=== PATIENT | female | born 1975 | race Caucasian/White ===

== ENCOUNTER → 2017-01-12 | Outpatient (CLI) | payer BC, MEDICAID ==
[~2017-01-12] MED LIST: AMOX250S5 PO; FLUC200T PO; HYDR-757 PO; HYDR1TAB8 OP; LEVO500T2 PO
--- NOTE | 2017-01-12 13:43 | Diagnostic Imaging Report ---
Bilateral screening mammogram The current study was also evaluated with a Computer Aided Detection (CAD) system. INDICATION: Screening. No current complaints stated on the questionnaire. COMPARISON: 01/30/16. FINDINGS: The breasts are composed of heterogeneously dense parenchyma which may decrease mammographic sensitivity. Benign-appearing calcifications are seen. Allowing for technique and positional differences, no suspicious change is seen. IMPRESSION: Dense breasts with no definite change. ACR BI-RADS Category 2: Benign findings. Result letter will be mailed to the patient. Note: At least 10% of breast cancer is not imaged by mammography. Dictated by: Dictated on workstation # [id number]
== END ==
LOC: RAD 09:56
PROVIDERS: ATTEND Nurse Practitioner Adult Health
DX: Z12.31 Encounter for screening mammogram for malignant neoplasm of breast (principal)
CPT/HCPCS: 77067

== ENCOUNTER → 2018-09-12 | Outpatient (CLI) | payer BC ==
--- NOTE | 2018-09-12 12:42 | Diagnostic Imaging Report ---
INDICATION: Routine screening. COMPARISON: 01/12/2017 and 01/30/2016. TECHNIQUE: 2D and 3D bilateral screening mammography was performed with CAD. FINDINGS: Both breasts show marked parenchymal heterogeneity and increased density, limiting the sensitivity of mammography. Circumscribed masses in the inner aspect of the right breast have increased in size when compared with the prior mammogram and most likely represent enlarging cysts. There appear to be two adjacent to one another. The left breast is unremarkable. No malignant appearing microcalcifications are seen. The axillae are unremarkable. IMPRESSION: Enlarging densities in the medial right breast at posterior depth at approximately the 3 o'clock location. Further evaluation with ultrasound is recommended for further catheterization. ACR BI-RADS Category 0: Incomplete. (Needs additional imaging evaluation). Result letter will be mailed to the patient. Note: At least 10% of breast cancer is not imaged by mammography. Dictated by: Dictated on workstation # [id number]
== END ==
LOC: RAD 08:06
PROVIDERS: ATTEND Nurse Practitioner Family
DX: Z12.31 Encounter for screening mammogram for malignant neoplasm of breast (principal); R92.8 Other abnormal and inconclusive findings on diagnostic imaging of breast
CPT/HCPCS: 77067

== ENCOUNTER → 2018-09-28 | Outpatient (CLI) | payer BC ==
--- NOTE | 2018-09-28 22:13 | Diagnostic Imaging Report ---
INDICATION: Abnormal mammogram. TECHNIQUE: Multiple real-time grayscale images were obtained over the right breast in various projections. FINDINGS: At the 1 o'clock position in the right breast, 7 cm from the nipple, there is a anechoic cyst, measuring 3.6 x 1.2 x 3.o cm. There are a few smaller cysts in the 12-3 o'clock position. IMPRESSION: The well-circumscribed mass on mammography corresponds to a simple cyst. ACR BI-RADS Category 2: Benign findings. Result letter will be mailed to the patient. Note: At least 10% of breast cancer is not imaged by mammography. Dictated by: Dictated on workstation # [id number]
== END ==
LOC: RAD 08:02
PROVIDERS: ATTEND Nurse Practitioner Family
DX: R92.8 Other abnormal and inconclusive findings on diagnostic imaging of breast (principal)

== ENCOUNTER 2019-03-22 07:52 | Emergency (ER) | payer BC ==
[~2019-03-22] VITALS: Ht 162.6 cm; Wt 72.6 kg
[2019-03-22] MEDS ORDERED: ASPIRIN 81 MG CHEW (CHILDREN'S ASA) PO STA (08:01)
[2019-03-22 08:12] LABS: BASOPHILS # (AUTO) 0.1 10^3/uL (0.0-0.1); BASOPHILS % (AUTO) 1 % (0-10); EOSINOPHILS # (AUTO) 0.4 10^3/uL (0.0-0.3); EOSINOPHILS % (AUTO) 3 % (0-10); HEMATOCRIT 41 % (35-52); HEMOGLOBIN 14.1 G/DL (11.5-16.0); LYMPHOCYTES # (AUTO) 3.1 X 10^3 (1.0-4.0); LYMPHOCYTES % (AUTO) 25 % (12-44); MEAN CORPUSCULAR HEMOGLOBIN 31 PG (25-34); MEAN CORPUSCULAR HGB CONC 35 G/DL (32-36); MEAN CORPUSCULAR VOLUME 89 FL (80-99); MEAN PLATELET VOLUME 8.8 FL (7.4-10.4); MONOCYTES # (AUTO) 0.9 X 10^3 (0.0-1.0); MONOCYTES % (AUTO) 7 % (0-12); NEUTROPHILS % (AUTO) 64 % (42-75); PLATELET COUNT 360 10^3/uL (130-400); RED CELL DISTRIBUTION WIDTH 12.4 % (10.0-14.5); WHITE BLOOD COUNT 12.5 10^3/uL (4.3-11.0)
[2019-03-22] MEDS ORDERED: ANTACID SUSP 30 ML UDC (MYLANTA) PO ONE (08:15)
[2019-03-22] MEDS ORDERED: LIDOCAINE 2% VISCOUS 15 ML UDC PO ONE (08:15)
--- NOTE | 2019-03-22 08:17 | ED Chest Pain ---
General Chief Complaint: Chest Pain Stated Complaint: SOA;CHEST DISCOMFORT Source: patient Exam Limitations: no limitations History of Present Illness Date Seen by Provider: Mar 22, 2019 Time Seen by Provider: 07:55 Initial Comments Here with report of central chest pressure has been intermittent over the last couple of days. Also has had upset stomach problems last few weeks and Tums is not working. She has appointment with her DrPrem in March. States pain is d iscomfort or pressure and is 2 out of 10. It has gotten worse overnight. It is associated with shortness of breath and intermittent sweating. Does have some intermittent nausea but no vomiting. Timing/Duration: getting worse, changing over time, intermittent, 12 hours Severity/Quality: mild, moderate, ingestion, pressure Location: central Radiation: no radiation Activities at Onset: none Prior CP/Workup: no prior chest pain, no prior cardiac workup ASA po EXECUTIVE CHEF ASSISTANT: No NTG SL EXECUTIVE CHEF ASSISTANT: No Associated Symptoms: abdominal pain; No back pain, No edema, No fever/chills; shortness of breath; No weakness Allergies and Home Medications Allergies Coded Allergies: No Known Drug Allergies (Unverified , 11/07/14) Home Medications Fluconazole 200 Mg Tablet, 200 MG PO DAILY Prescribed by: PATRICK REYNOSO on 10/12/15 1134 Hydrocodone Bit/Acetaminophen 1 Each Tablet, 1 EA PO Q6H PRN for MILD PAIN Prescribed by: THAI PATHAK on 11/15/14 2216 Hydrocodone Bit/Ibuprofen 1 Each Tablet, 1-2 EACH OP Q4-6HR PRN for PAIN FOR PAIN Prescribed by: PATRICK REYNOSO on 11/07/14 1127 Levofloxacin 500 Mg Tablet, 500 MG PO DAILY Prescribed by: PATRICK REYNOSO on 10/12/15 1134 Patient Home Medication List Home Medication List Reviewed: Yes Review of Systems Review of Systems Constitutional: see HPI; No chills; diaphoresis; No fever EENTM: No Symptoms Reported Respiratory: Denies Orthopnea; Shortness of Air Cardiovascular: No Symptoms Reported Gastrointestinal: Abdominal Pain, Nausea; Denies Vomiting Genitourinary: No Symptoms Reported Musculoskeletal: no symptoms reported Skin: no symptoms reported Psychiatric/Neurological: No Symptoms Reported All Other Systems Reviewed Negative Unless Noted: Yes Past Fufxpgp-Pecuod-Smfzpu Hx Past Med/Social Hx: Reviewed Nursing Past Med/Soc Hx Patient Social History Alcohol Use: Occasionally Uses Alcohol Beverage of Choice: Beer Recreational Drug Use: No Smoking Status: Never a Smoker Recent Foreign Travel: No Contact w/Someone Who Travel: No Seasonal Allergies Seasonal Allergies: No Past Medical History Surgeries: No Respiratory: No Cardiac: No Neurological: No Reproductive Disorders: No Gastrointestinal: No Musculoskeletal: No Endocrine: No Cancer: No Psychosocial: No Integumentary: No Blood Disorders: No Family Medical History Reviewed Nursing Family Hx No Pertinent Family Hx Physical Exam Vital Signs Vital Signs - First Documented 03/22/19 07:52 Temp 98.5 Pulse 87 Resp 18 B/P (MAP) 151/97 (115) Pulse Ox 97 O2 Delivery Room Air Capillary Refill : Height, Weight, BMI Height: 5'4" Weight: 140lbs. oz. 63.602943al; 24.03 BMI Method:Stated General Appearance: No Apparent Distress, WD/WN HEENT: PERRL/EOMI, Pharynx Normal Neck: Non Tender, Supple Respiratory: Lungs Clear, Normal Breath Sounds Cardiovascular: Regular Rate, Rhythm, No Murmur Gastrointestinal: Non Tender, Soft Extremity: Normal Range of Motion, Non Tender Neurologic/Psychiatric: Alert, Oriented x3 Skin: Normal Color, Warm/Dry Progress/Results/Core Measures Results/Orders Lab Results Laboratory Tests Test 03/22/19 08:02 03/22/19 08:25 Range/Units White Blood Count 12.5 H 4.3-11.0 10^3/uL Red Blood Count 4.61 4.35-5.85 10^6/uL Hemoglobin 14.1 11.5-16.0 G/DL Hematocrit 41 35-52 % Mean Corpuscular Volume 89 80-99 FL Mean Corpuscular Hemoglobin 31 25-34 PG Mean Corpuscular Hemoglobin Concent 35 32-36 G/DL Red Cell Distribution Width 12.4 10.0-14.5 % Platelet Count 360 130-400 10^3/uL Mean Platelet Volume 8.8 7.4-10.4 FL Neutrophils (%) (Auto) 64 42-75 % Lymphocytes (%) (Auto) 25 12-44 % Monocytes (%) (Auto) 7 0-12 % Eosinophils (%) (Auto) 3 0-10 % Basophils (%) (Auto) 1 0-10 % Neutrophils # (Auto) 8.0 H 1.8-7.8 X 10^3 Lymphocytes # (Auto) 3.1 1.0-4.0 X 10^3 Monocytes # (Auto) 0.9 0.0-1.0 X 10^3 Eosinophils # (Auto) 0.4 H 0.0-0.3 10^3/uL Basophils # (Auto) 0.1 0.0-0.1 10^3/uL Prothrombin Time 13.1 12.2-14.7 SEC INR Comment 1.0 0.8-1.4 Activated Partial Thromboplast Time 26 24-35 SEC D-Dimer < 0.27 0.00-0.49 UG/ML Sodium Level 137 135-145 MMOL/L Potassium Level 4.0 3.6-5.0 MMOL/L Chloride Level 104 98-107 MMOL/L Carbon Dioxide Level 22 21-32 MMOL/L Anion Gap 11 5-14 MMOL/L Blood Urea Nitrogen 14 7-18 MG/DL Creatinine 0.79 0.60-1.30 MG/DL Estimat Glomerular Filtration Rate > 60 BUN/Creatinine Ratio 18 Glucose Level 103 70-105 MG/DL Calcium Level 9.5 8.5-10.1 MG/DL Corrected Calcium 9.3 8.5-10.1 MG/DL Magnesium Level 2.1 1.8-2.4 MG/DL Total Bilirubin 0.5 0.1-1.0 MG/DL Aspartate Amino Transf (AST/SGOT) 19 5-34 U/L Alanine Aminotransferase (ALT/SGPT) 24 0-55 U/L Alkaline Phosphatase 80 40-136 U/L Myoglobin 31.9 10.0-92.0 NG/ML Troponin I < 0.028 <0.028 NG/ML Total Protein 7.8 6.4-8.2 GM/DL Albumin 4.3 3.2-4.5 GM/DL My Orders Orders - RYLEE MARTINEZ MD Chest 1 View, Ap/Pa Only (03/22/19 07:53) Ekg Tracing (03/22/19 07:53) Cbc With Automated Diff (03/22/19 07:53) Magnesium (03/22/19 07:53) Cardiac Profile 1 (03/22/19 07:53) Comprehensive Metabolic Panel (03/22/19 07:53) Myoglobin Serum (03/22/19 07:53) Protime With Inr (03/22/19 07:53) Partial Thromboplastin Time (03/22/19 07:53) O2 (03/22/19 07:53) Monitor-Rhythm Ecg Trace Only (03/22/19 07:53) Lipid Panel (03/23/19 06:00) Ed Iv/Invasive Line Start (03/22/19 07:53) Fibrin Degradation Products (03/22/19 07:53) Lidocaine 2% Viscous 15 Ml (Xylocaine Vi (03/22/19 08:15) Antacid Suspension (Mylanta Suspension (03/22/19 08:15) Aspirin Chewable Tablet (Baby Aspirin Ch (03/22/19 08:01) Medications Given in ED Current Medications Medications Dose Ordered Sig/Amalia Route Start Time Stop Time Status Last Admin Dose Admin Al Hydrox/Mg Hydrox/Simethicone 30 ml ONCE ONCE PO 03/22/19 08:15 03/22/19 08:16 DC 03/22/19 08:10 30 ML Lidocaine HCl 15 ml ONCE ONCE PO 03/22/19 08:15 03/22/19 08:16 DC 03/22/19 08:10 15 ML Vital Signs/I&O 03/22/19 03/22/19 07:52 08:39 Temp 98.5 Pulse 87 84 Resp 18 18 B/P (MAP) 151/97 (115) 119/70 (86) Pulse Ox 97 95 O2 Delivery Room Air Room Air Progress Progress Note : Progress Note Seen and evaluated. IV, labs, EKG and chest x-ray. ASA 324 mg by mouth ordered. GI cocktail ordered. Normal saline 1 L bolus. Monitor patient. 0951: No acute findings on labs. Overall feeling better after GI cocktail. Non-concerning for cardiac and no indication of pulmonary embolism. We did discuss outpatient therapy for reflux and gastritis type symptoms. She has a follow-up with Corey Arrieta at the clinic on 04/09/19. She will keep that appointment and discuss with him about further evaluation including cardiology for stress test if indicated and potentially with surgery for upper endoscopy as needed. She will initiate outpatient omeprazole. Discharged home with return precautions. Patient verbalize understanding instructions and agreement with plan. Initial ECG Impression Date: Mar 22, 2019 Initial ECG Impression Time: 07:57 Initial ECG Rate: 84 Initial ECG Rhythm: Normal Sinus Initial ECG Impression: Normal Initial ECG Comparisson: Changed Comment Sinus rhythm with normal axis. No evidence of ST elevation ND. Lead 3 artifact but appears to have T-wave inversions. This would represents a change from previous but otherwise no changes in morphology or significant changes in axis. Interpreted by me. Diagnostic Imaging Diagonstic Imaging: Xray Plain Films/CT/US/NM/MRI: chest Comments NAME: GL[facility] REC#: [id number] PT STATUS: REG ER : 1975 PHYSICIAN: RYLEE MARTINEZ MD ADMIT DATE: 03/22/19/ER Signed Date of Exam: 03/22/19 CHEST 1 VIEW, AP/PA ONLY Patient History: Shortness of breath.. Technique: Single frontal view of the chest Comparison: Chest radiograph on 10/12/2015 FINDINGS: The lung volumes are normal. No focal consolidation is seen. No large pleural effusion or pneumothorax is seen. The cardiomediastinal silhouette is normal in size and contour. No acute osseous abnormality is seen. IMPRESSION: No acute pulmonary abnormality seen. Dictated by: Dictated on workstation # [id number] Dict: 03/22/19827 Trans: 03/22/19828 Interpreted by: ALTHEA ALCANTARA DO Electronically signed by: ALTHEA ALCANTARA DO 03/22/19828 Departure Impression Primary Impression: Chest pain Qualified Codes: R07.9 - Chest pain, unspecified Additional Impression: Gastroesophageal reflux disease Qualified Codes: K21.9 - Gastro-esophageal reflux disease without esophagitis Disposition: 01 HOME, SELF-CARE Condition: Improved Departure-Patient Inst. Decision time for Depature: 09:54 Referrals: JOVANNY MORAN DO (PCP) Primary Care Physician SAILAJA VIDAL APRN (Family) Primary Care Physician Patient Instructions: Chest Pain (DC), Acid Reflux (Gastroesophageal Reflux Disease), Adult (DC) Add. Discharge Instructions: All discharge instructions reviewed with patient and/or family. Voiced understanding. You may start knje-cgy-upewdmt omeprazole 20 mg daily for the next 2 weeks and then may extend at up to 6 weeks. You may also take Pepcid or the generic famotidine 20 mg daily as needed for stomach upset. Keep appointment with your provider as scheduled. Return for worse pain, fever, vomiting, weakness, breathing problems or other concerns as needed. You can discuss with your provider about referral to cardiology for stress test if needed and referral to surgery for upper endoscopy (scope) if needed. Copy Copies To 1: JOVANNY MORAN TIMOTHY D MD Mar 22, 2019 08:17
--- NOTE | 2019-03-22 08:23 | NUR ---
LAB CALLED BLOOD HEMOLYZED WILL COME REDRAW
--- NOTE | 2019-03-22 08:23 | NUR ---
Nkechi serrano in [place] - 03/22/19 at 0826 by PMCCLCYRIL LAB CALLED BLOOD HEMOLYZED WILL COME PALMA CAMEJO
[2019-03-22 08:30] LABS: PROTHROMBIN TIME PATIENT 13.1 SEC (12.2-14.7)
--- NOTE | 2019-03-22 08:31 | Diagnostic Imaging Report ---
Patient History: Shortness of breath.. Technique: Single frontal view of the chest Comparison: Chest radiograph on 10/12/2015 FINDINGS: The lung volumes are normal. No focal consolidation is seen. No large pleural effusion or pneumothorax is seen. The cardiomediastinal silhouette is normal in size and contour. No acute osseous abnormality is seen. IMPRESSION: No acute pulmonary abnormality seen. Dictated by: Dictated on workstation # [id number]
[2019-03-22 08:39] VITALS: BP 119/70
[2019-03-22 08:57] LABS: ALANINE AMINOTRANSFERASE 24 U/L (0-55); ALBUMIN 4.3 GM/DL (3.2-4.5); ALKALINE PHOSPHATASE 80 U/L (40-136); BILIRUBIN,TOTAL 0.5 MG/DL (0.1-1.0); BUN/CREATININE RATIO 18; CALCIUM 9.5 MG/DL (8.5-10.1); CARBON DIOXIDE 22 MMOL/L (21-32); CHLORIDE 104 MMOL/L (98-107); CREATININE SERUM 0.79 MG/DL (0.60-1.30); GFR ESTIMATED > 60; GLUCOSE 103 MG/DL (70-105); MAGNESIUM 2.1 MG/DL (1.8-2.4); SODIUM 137 MMOL/L (135-145); TOTAL PROTEIN 7.8 GM/DL (6.4-8.2)
[2019-03-22 10:03] VITALS: BP 127/82
== END 2019-03-22 10:03 | disposition home or self-care (01) ==
LOC: EDUNIT# 07:52 → ER 07:53
DX: R07.9 Chest pain, unspecified (principal); K21.9 Gastro-esophageal reflux disease without esophagitis
CPT/HCPCS: 36415; 71045; 80053; 83735; 83874; 84484; 85025; 85379; 85610; 85730; 93005; 93041

== ENCOUNTER → 2019-09-20 | Outpatient (CLI) | payer BC ==
--- NOTE | 2019-09-20 11:46 | Diagnostic Imaging Report ---
EXAM: Ultrasound limited right breast INDICATION: Right breast cyst The previous right breast ultrasound exam of 09/28/2018 noted a 3.6 x 1.2 x 3.0 cm anechoic cyst deep in the 1 o'clock position of the right breast. The diagnostic mammogram performed earlier today indicates that the cyst had increased in size and that there was a 2nd rounded density present, as well. On this exam the cyst noted previously does measure larger. This cyst is now estimated to be 4.8 x 1.9 x 3.2 cm. This cyst does have a generally benign appearance. In addition, there is another cyst measuring 2.7 x 3.0 x 2.2 cm. This cyst also has a generally benign appearance. As on the previous study, there are a few smaller subcentimeter cysts in this same area. There is no solid mass to suggest malignancy. IMPRESSION: 1. The large cyst deep in the right breast seen previously has increased in size. There is a 2nd cyst in this area, as well. These cysts have a generally benign appearance. 2. There is no solid mass to suggest malignancy. 3. The patient should have her annual screening mammogram on schedule in August of 2020. ACR category 2 ACR BI-RADS Category 2: Benign findings. Result letter will be mailed to the patient. Note: At least 10% of breast cancer is not imaged by mammography. Dictated by: Dictated on workstation # [id number]
--- NOTE | 2019-09-21 08:01 | Diagnostic Imaging Report ---
Bilateral diagnostic mammogram. Indication: Right breast cyst The study was compared to the prior exams 09/12/2018, 01/22/2017 and 01/30/2016. At this time there are no current complaints. The fibroglandular tissue in both breasts is heterogeneously dense. This does limit the sensitivity of this exam. The previous mammogram and ultrasound exam of 09/28/2018 noted a well-circumscribed 3.6 x 1.2 x 3.0 cm cyst in the 1 o'clock position right breast at 7 cm in depth. That cyst appears to have increased in size since the prior exam. There may also be another cyst now present in this area. Ultrasound is pending for further study. The overall appearance of the breasts has not changed significantly otherwise. There is no primary or secondary sign of malignancy noted. Impression: The cyst in the right breast seen previously has increased in size. There also now appears to be a 2nd cyst present. Ultrasound is pending for further evaluation. ACR BI-RADS Category 0: Incomplete. (Needs additional imaging evaluation). Result letter will be mailed to the patient. Note: At least 10% of breast cancer is not imaged by mammography. Dictated by: Dictated on workstation # [id number]
== END ==
LOC: RAD 09:30
PROVIDERS: ATTEND Nurse Practitioner Community Health
DX: N63.20 Unspecified lump in the left breast, unspecified quadrant (principal); N60.01 Solitary cyst of right breast
CPT/HCPCS: 77066

== ENCOUNTER 2019-10-29 05:48 | Outpatient (CLI) | payer BC ==
[~2019-10-29] VITALS: Ht 162 cm; Wt 81.0 kg
[2019-10-29] MEDS ORDERED: HYDR25CA PO (13:33)
[2019-10-29] MEDS ORDERED: OMEP20TA33 PO (13:33)
== END 2019-10-29 13:42 | disposition home or self-care (01) ==
LOC: PREOP 05:48
PROVIDERS: ATTEND Surgery
DX: Z01.818 Encounter for other preprocedural examination (principal)

== ENCOUNTER → 2020-07-31 | Outpatient (CLI) | payer BC ==
[~2020-07-31] MED LIST changes: +HYDR-4227 PO; +HYDR25CA PO; +OMEP20TA33 PO; +OXYC1TAB16 PO
--- NOTE | 2020-07-31 09:01 | Diagnostic Imaging Report ---
PROCEDURE: CT urinary tract, rule out kidney stone. TECHNIQUE: Multiple contiguous axial images were obtained through the abdomen and pelvis without the use of intravenous contrast. Auto Exposure Controls were utilized during the CT exam to meet ALARA standards for radiation dose reduction. INDICATION: Left flank pain. History of UTI. COMPARISON: 10/12/2015 FINDINGS: Included portions of lung bases kidneys have an unremarkable noncontrast CT appearance. No renal or ureteral calculi are seen on either side. Additionally, there is no hydronephrosis or other evidence of obstruction. Liver is diffusely hypodense on this noncontrast exam consistent with hepatic steatosis. Otherwise, the liver, adrenal glands, spleen, and pancreas have an unremarkable noncontrast CT appearance. There is no loculated fluid collection, free fluid or free air within the abdomen. No abnormal mesenteric or retroperitoneal adenopathy is seen. Small bowel loops are nondistended. Normal appendix is identified. Osseous structures show no acute abnormalities. CT PELVIS: Urinary bladder is unopacified. No calculi are seen within urinary bladder. There is no loculated fluid collection, free fluid or free air within the pelvis. No abnormal adenopathy is seen. Osseous structures show no acute abnormalities. IMPRESSION: 1. Unremarkable noncontrast CT appearance of the kidneys and renal collecting systems. 2. Hepatic steatosis. Dictated by: Dictated on workstation # [id number]
== END ==
LOC: RAD 08:15
PROVIDERS: ATTEND Physician Assistant
DX: K76.0 Fatty (change of) liver, not elsewhere classified (principal); Z87.440 Personal history of urinary (tract) infections
CPT/HCPCS: 74176

== ENCOUNTER → 2020-09-25 | Outpatient (CLI) | payer BC, OTHER ==
--- NOTE | 2020-09-25 09:30 | Diagnostic Imaging Report ---
INDICATION: Right breast lump. Correlation is made with prior mammogram from 09/20/2019 and 09/12/2018. 2-D and 3-D bilateral diagnostic mammography was performed with CAD. Both breasts remain heterogeneously dense, limiting the sensitivity of mammography. Circumscribed masses in the upper and inner aspect of the right breast at posterior depth show some increase in size, likely enlarging cysts. These have been shown to represent cysts on prior ultrasound. No new mass is identified. No spiculated mass is seen. No malignant appearing microcalcifications are identified. Axillae are unremarkable. IMPRESSION: BI-RADS 0 Enlarging circumscribed density in the upper inner right breast posterior depth, likely enlarging cyst. Further evaluation with ultrasound is recommended and will be performed today. ACR BI-RADS Category 0: Incomplete. (Needs additional imaging evaluation). Result letter will be mailed to the patient. Note: At least 10% of breast cancer is not imaged by mammography. Dictated by: Dictated on workstation # [id number]
--- NOTE | 2020-09-25 10:10 | Diagnostic Imaging Report ---
INDICATION: Enlarging right breast mass. Correlation is made with diagnostic mammogram earlier same day as well as prior right breast ultrasound from 09/20/2019. There is a large, septated cyst in the right breast 1:00 location, 7 cm from the nipple. This was measured as 2 lesions previously but appears to be one large, likely septated lesion. This measures 6.4 x 2.2 x 3.9 cm. No internal vascularity is seen. IMPRESSION: Large septated cyst 1:00 location right breast, accounting for the enlarging density noted mammographically. Patient may return to routine annual screening mammography. BI-RADS Category 2 ACR BI-RADS Category 2: Benign findings. Dictated by: Dictated on workstation # [id number]
== END ==
LOC: RAD 09:15
PROVIDERS: ATTEND Physician Assistant
DX: Z12.31 Encounter for screening mammogram for malignant neoplasm of breast (principal); N60.01 Solitary cyst of right breast; R92.8 Other abnormal and inconclusive findings on diagnostic imaging of breast
CPT/HCPCS: 76642; 77066; G0279; 77062

== ENCOUNTER → 2021-09-03 | Outpatient (CLI) | payer OTHER ==
--- NOTE | 2021-09-03 11:11 | Diagnostic Imaging Report ---
Ultrasound right breast Limited. INDICATION: Right breast cyst The diagnostic mammogram performed just prior to this study noted that the large septated cyst in the 1 o'clock position right breast seen previously did seem slightly larger than on the prior exam. On this exam the cyst is again visualized. This cyst has a generally benign appearance although it is septated. This cyst now measures 7.4 x 2.2 x 4.6 cm as opposed to 6.5 x 2.2 x 3.9 cm on the prior ultrasound exam of 09/25/2020. In my conversation with the patient following the exam I mentioned that the cyst could be aspirated either by her physician or with ultrasound guidance. There is no other abnormality identified. IMPRESSION: 1. The benign-appearing cyst in the 1 o'clock position right breast seen previously has increased in size. 2. There is no evidence for malignancy. 3. An ultrasound-guided aspiration of the cyst could be performed if desired. ACR category 2 ACR BI-RADS Category 2: Benign findings. Dictated by: Dictated on workstation # [id number]
--- NOTE | 2021-09-03 16:03 | Diagnostic Imaging Report ---
Digital mammogram, bilateral diagnostic. INDICATION: Right breast lump The study was compared to the prior exams of 09/25/2020, 09/20/2019, 09/12/2018 and 01/12/2017. At this time, the patient does complain of a lump at the upper inner aspect of the right breast. A marker was placed over the area of concern. In this region, there is a large well-defined dense asymmetry. This finding has been present on prior exams dating as far back as 09/12/2018 but it has increased in size each year since the 2019 exam. The ultrasound examination of this finding performed last year on 09/17/2020 revealed a large septated cyst in this region. On this exam, the cyst in question appears slightly larger. Ultrasound is pending for further study. The overall appearance of the breast has not changed significantly otherwise. There is no primary or secondary sign of malignancy noted. The fibroglandular tissue in both breasts is heterogeneously dense however and this does limit the sensitivity of this exam. IMPRESSION: 1. The large cyst in the upper-inner quadrant right breast seen previously does measure somewhat greater than on the prior exam. Ultrasound is pending for further study. 2. There is no evidence for malignancy otherwise. ACR BI-RADS Category 0: Incomplete. (Needs additional imaging evaluation). Result letter will be mailed to the patient. Note: At least 10% of breast cancer is not imaged by mammography. Dictated by: Dictated on workstation # [id number]
== END ==
LOC: RAD 09:15
PROVIDERS: ATTEND Physician Assistant
DX: N60.01 Solitary cyst of right breast (principal)
CPT/HCPCS: 76642; 77066; G0279; 77062

== ENCOUNTER → 2021-10-30 | Outpatient (CLI) | payer OTHER ==
[~2021-10-30] VITALS: Ht 163 cm; Wt 68.0 kg
[~2021-10-30] MED LIST changes: +LIDOCAINE 1% INJ 50 ML (XYLOCAINE) VIAL IJ ONE
--- NOTE | 2021-10-30 11:53 | Diagnostic Imaging Report ---
INDICATION: Right breast cyst. Patient presents for ultrasound-guided aspiration. FINDINGS: Patient was brought to the ultrasound room, placed on table in the supine position. Ultrasound imaging of the right breast was performed to evaluate appropriate entry site. The right breast was then prepped and draped in the usual sterile fashion. Small amount of 1% lidocaine was utilized for local anesthesia. 18-gauge spinal needle was advanced into the large right breast cyst located at the 1 o'clock location, 7 cm from the nipple. A total of approximately 40 mL of light brownish fluid was aspirated. Needle was withdrawn and hemostasis was obtained. Follow-up imaging shows near-complete collapse of the right breast cyst with only small amount of residual fluid remaining. IMPRESSION: Right breast cyst aspiration obtaining 40 mL of fluid, as described. Dictated by: Dictated on workstation # [id number]
== END ==
LOC: RAD 08:30
PROVIDERS: ATTEND Physician Assistant
DX: N60.01 Solitary cyst of right breast (principal)

== ENCOUNTER 2022-07-09 05:29 | Outpatient (CLI) | payer OTHER ==
[~2022-07-09] VITALS: Ht 162.5 cm; Wt 59.5 kg
[~2022-07-09 05:29] MED LIST changes: -LIDOCAINE 1% INJ 50 ML (XYLOCAINE) VIAL IJ ONE
== END 2022-07-12 14:39 | disposition home or self-care (01) ==
LOC: PREOP 05:29
PROVIDERS: ATTEND Obstetrics & Gynecology
DX: Z01.818 Encounter for other preprocedural examination (principal)

== ENCOUNTER 2022-07-16 05:50 | Day surgery (SDC) | payer OTHER ==
[~2022-07-16] VITALS: Ht 162.5 cm; Wt 59.5 kg
[2022-07-16] VITALS (11 sets, daily range): BP systolic 83–128; BP diastolic 49–83
[2022-07-16] MEDS ORDERED: ceFAZolin INJECTION 1,000 MG in NS (IVPB) 50 ML IV ONE (06:00)
[2022-07-16] MEDS ORDERED: LACTATED RINGERS 1,000 ML IV PRN (06:00)
[2022-07-16 06:46] LABS: BASOPHILS # (AUTO) 0.1 10^3/uL (0.0-0.1); BASOPHILS % (AUTO) 1 % (0-10); EOSINOPHILS % (AUTO) 1 % (0-10); HEMATOCRIT 41 % (35-52); HEMOGLOBIN 14.2 g/dL (11.5-16.0); LYMPHOCYTES # (AUTO) 1.9 10^3/uL (1.0-4.0); LYMPHOCYTES % (AUTO) 26 % (12-44); MEAN CORPUSCULAR HEMOGLOBIN 31 pg (25-34); MEAN CORPUSCULAR HGB CONC 35 g/dL (32-36); MEAN CORPUSCULAR VOLUME 89 fL (80-99); MEAN PLATELET VOLUME 9.1 fL (9.0-12.2); MONOCYTES # (AUTO) 0.4 10^3/uL (0.0-1.0); MONOCYTES % (AUTO) 6 % (0-12); NEUTROPHILS % (AUTO) 67 % (42-75); PLATELET COUNT 240 10^3/uL (130-400); WHITE BLOOD COUNT 7.4 10^3/uL (4.3-11.0)
[2022-07-16] MEDS ORDERED: MIDAZOLAM 2 MG/2 ML (VERSED) VIAL ONE (06:58)
[2022-07-16] MEDS ORDERED: proPOfol 200 MG/20 ML (DIPRIVAN) VIAL IV ONE ×2 (06:58→07:20)
[2022-07-16] MEDS ORDERED: fentaNYL INJ 100 MCG/2 ML AMP ONE (06:58)
[2022-07-16] MEDS ORDERED: ONDANSETRON 4 MG/2 ML (SDV) Z0FRAN ONE (06:58)
[2022-07-16] MEDS ORDERED: LIDOCAINE PF 2% 5 ML (XYLOCAINE) VIAL ONE (06:58)
--- NOTE | 2022-07-16 07:12 | Progress Note-Pre Operative ---
Pre-Operative Progress Note Date of Available H&P: Jul 16, 2022 Date H&P Reviewed: Jul 16, 2022 Time H&P Reviewed: 07:11 History & Physical: H&P Reviewed, No changes noted Pre-Operative Diagnosis: KONSTANTIN-2 JENNIFER MARVIN MD Jul 16, 2022 07:12
--- NOTE | 2022-07-16 07:12 | Progress Note-Post Operative ---
Post-Operative Progess Note Surgeon (s)/Rod Tape Operator (s) Surgeon JENNIFER MARVIN MD Rod Tape Operator: None Pre-Operative Diagnosis KONSTANTIN-2 Post-Operative Diagnosis Same with pathology pending Procedure & Operative Findings Date of Procedure 07/16/22 Procedure Performed/Findings LEEP procedure Anesthesia Type General Estimated Blood Loss Estimated blood loss (mL): minimal Specimens/Packing Specimens Removed Ectocervix LEEP specimen JENNIFER MARVIN MD Jul 16, 2022 07:12
--- NOTE | 2022-07-16 07:14 | Discharge Inst-Surgical ---
Discharge Inst-Surgical Depart Medication/Instructions New, Converted or Re-Newed RX: Other Consults/Follow Up Orders & Referrals Follow Up Appt: Call to make follow up appt. for patient in 2 weeks. Activity: Rest for 24 hours, than as tolerated. May use own [id number] Motrin and Tylenol as needed pain Diet: As tolerated shower or tub bathe as desired. No driving for 24 hours, no alcoholic beverages for 24 hours, and nothing per vagina (no tampons, douching, or intercoarse) for 2 weeks. Patient to return to the clinic as soon as possible for: Temperature greater than 101F, Severe Pain, Foul discharge from incision or vagina, Excessive Bleeding (more than a period). Activity Activity as Tolerated: No Diet Discharge Diet: No Restrictions JENNIFER MARVIN MD Jul 16, 2022 07:14
[2022-07-16] MEDS ORDERED: morphine INJ 10 MG/ML 1ML (SYR OR VIAL) IVP ONE (07:15)
[2022-07-16] MEDS ORDERED: HYDROmorphone 2 MG/ML VIAL (DILAUDID) IV ONE (07:15)
[2022-07-16] MEDS ORDERED: ONDANSETRON 4 MG/2 ML (SDV) Z0FRAN IVP PRN ×2 (07:15)
[2022-07-16] MEDS ORDERED: D5 LR IV SOLUTION 1,000 ML IV SCH (07:15)
[2022-07-16] MEDS ORDERED: PROMETHAZINE INJ 25 MG/ML (PHENERGAN) AMP IM ONE (07:15)
[2022-07-16] MEDS ORDERED: KETOROLAC 30 MG/ML VIAL IVP ONE (07:15)
[2022-07-16] MEDS ORDERED: MEPERIDINE (DEMEROL) INJ 100 MG/ML IM ONE (07:15)
[2022-07-16] MEDS ORDERED: SEVOFLURANE (ULTANE) 15 ML INHAL SOLN ONE (08:00)
[2022-07-16] MEDS ORDERED: KETOROLAC 30 MG/ML VIAL ONE (08:07)
--- NOTE | 2022-07-16 09:54 | Anesthesia-General Post-Op ---
General Patient Condition Mental Status/LOC: Same as Preop Cardiovascular: Satisfactory Nausea/Vomiting: Absent Respiratory: Satisfactory Pain: Controlled Complications: Absent Post Op Complications Complications None Follow Up Care/Instructions Patient Instructions None needed. Anesthesia/Patient Condition Patient Condition Patient was doing well in PACU after the procedure, no complaints, stable vital signs, no apparent adverse anesthesia problems. No complications reported per nursing. ALMA PLUMMER DO Jul 16, 2022 09:54
--- NOTE | 2022-07-16 12:36 | OPERATIVE REPORT ---
DATE OF SERVICE: 07/16/2022 PREOPERATIVE DIAGNOSIS: Cervical intraepithelial neoplasia 2. POSTOPERATIVE DIAGNOSIS: Cervical intraepithelial neoplasia 2. PROCEDURE PERFORMED: LEEP procedure. DESCRIPTION OF PROCEDURE: With the patient in the supine position, under satisfactory general anesthesia, she was repositioned in a dorsal lithotomy position in the Luis stirrups and prepped and draped in the usual fashion for vaginal surgery. A weighted speculum was placed in the posterior fornix of the vagina. The cervix was grasped anteriorly with single tooth tenaculum and elevated. The cervix was saturated with 5% acetic acid and after several minutes that was removed from the vagina. There was an acetowhite lesion basically encompassing the entire cervical os. There was a transformation zone evident on the cervical os as well. Using a 20 mm LEEP electrode with the power set at 55 cruz, LEEP procedure was performed in one pass with removal of the entire acetowhite area including the transformation zone. The specimen was tagged at 12 o'clock position and sent to pathology for permanent section. The cervical defect was now treated with ball electrocautery set at 45 cruz to effect hemostasis. With hemostasis complete, the tenaculum was removed. There was a little bit of bleeding from one of the puncture sites. This was stopped with cautery to effect hemostasis there. Now with hemostasis assured, blood loss was minimal, sponge and needle counts correct and the procedure complete, the patient was uneventfully awakened from her general anesthesia and transferred to the recovery room in a stable condition with plans for discharge home. Job ID: [id number] DocumentID: [id number] Dictated Date: 07/16/2022 07:56:40 Elementary Reading Specialist Date: 07/16/2022 12:34:00 Dictated By: JENNIFER MARVIN MD
== END 2022-07-16 09:30 | disposition home or self-care (01) ==
LOC: SDC 05:50
PROVIDERS: ATTEND Obstetrics & Gynecology
DX: N87.1 Moderate cervical dysplasia (principal)
CPT/HCPCS: 36415; 84703; 85025; 87081